=== PATIENT | male | born 1960 | race Caucasian/White ===

== ENCOUNTER 2019-07-27 02:56 | Emergency (ER) | payer SELFPAY ==
[~2019-07-27] VITALS: Ht 167.6 cm; Wt 73.0 kg
[2019-07-27] MEDS ORDERED: HYDROCODONE/APAP 10/325MG 1 EA TABLET ONE (04:16)
[2019-07-27] MEDS ORDERED: HYDROCODONE/APAP 10/325MG 1 EA TABLET PO ONE (04:30)
[2019-07-27 05:12] VITALS: BP 141/88
== END 2019-07-27 05:12 | disposition home or self-care (01) ==
LOC: ER 02:59
DX: S62.101A Fracture of unspecified carpal bone, right wrist, initial encounter for closed fracture (principal); W18.39XA Other fall on same level, initial encounter; Y93.89 Activity, other specified; Y92.89 Other specified places as the place of occurrence of the external cause; Y99.8 Other external cause status
CPT/HCPCS: 73090-TC; 73110